=== PATIENT | female | born 1950 | race Caucasian/White ===

== ENCOUNTER 2017-01-25 18:24 | Inpatient (IN) | payer MEDICARE, OTHER ==
--- NOTE | ~2017-01-25 | DS ---
Discharge Summary [facility] [address] [place]. [address] NAME: OLIVERIO CHÁVEZ : 52 STATUS : DIS IN PAT#: [id number] AGE: 66 ADM/REG DATE : 01/25/17 MR#: [id number] REPORT SERV DATE: 02/07/17 DICTATED BY: ELENO FORBES DATE: 02/06/17 REPORT STATUS : Draft TRANSCRIBED BY: PEDRO DATE: 02/06/17 Data Collection from hospitalization DISCHARGE DIAGNOSIS: Recurrent vulva cancer. CONSULTATIONS: None. PROCEDURES PERFORMED: 1. CT scan of the chest with contrast on 01/26/2017. 2. CT-guided biopsy of right upper lobe metastatic lesion on 01/28/2017. 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 MEDICATIONS: Aspirin 81 mg at bedtime, Tessalon 200 mg three times a day, Cartia XT 180 mg at bedtime, Benadryl 25 mg at bedtime and 25 mg daily as needed, Estrace 1 mg at bedtime, Felton 5/325 one tablet at bedtime, Felton 5/325 one tablet every four hours as needed, Zestril 20 mg at bedtime, Prinzide one tablet daily, Lopressor 50 mg every 48 hours as instructed, Mycostatin one application topically three times a day as needed, Zofran 8 mg daily as needed, and Aquaphor one application topically three times a day as needed. CONDITION AT DISCHARGE: Stable. DISPOSITION: The patient was discharged home on a regular diet with activities as instructed. She would follow up with me on 02/04/2017. HOSPITAL COURSE: This is a 66-year-old female who has vulva carcinoma. She had completed radiation therapy. She had a cough and a sore throat that began Saturday evening prior to this admission after receiving a transfusion. Her cough was nonproductive. She had no fevers or chills. She said that her chest hurt from coughing so much. She was admitted to the hospital at this time for further evaluation and treatment. Upon admission, a CT scan of the chest with contrast was performed. There was a mass-like consolidation in the lingula measuring up to 23 x 46 mm with multiple new irregular nodules scattered throughout both lungs. Findings were highly concerning for metastatic disease. There was a left hilar mass, which appeared to represent conglomerate right lymphadenopathy, this measured up to 3.1 x 2.2 x 5 cm. There was trace left pleural effusion with mild pleural thickening posterior to the right lower lobe and posterior medial to the left lower lobe. Right chest Port-A-Cath device was in place. The following day, she seemed to be feeling better. She still had a cough. She had minimal improvement with Tessalon Perles. Plans were being made for a biopsy to be performed of the multiple lung lesions. On 01/28/2017, CT-guided biopsy of right upper lobe lung metastatic lesion was performed. It was felt that this was likely metastatic to the lungs from primary vulva cancer. Discharge planning was performed. On 01/29/2017, she continued to have a cough. She had mild control with the Tessalon Perles. She had no new complaints. She was going to be set up for home O2. She declined hospice care at this time. Discharge instructions were given. Due to her improved and stable condition, she was discharged home with the above-stated instructions. Discharge Summary [address] [address] NAME: OLIVERIO CHÁVEZ : 52 STATUS : DIS IN PAT#: [id number] AGE: 66 ADM/REG DATE : 01/25/17 MR#: [id number] REPORT SERV DATE: 02/07/17 DICTATED BY: ELENO FORBES DATE: 02/06/17 REPORT STATUS : Draft TRANSCRIBED BY: PEDRO DATE: 02/06/17 Information collected by: Salome Kelly I submit the above information as my discharge summary. TG/PEDRO Eleno Forbes M.D. / [id number] CC: Alicia Callahan M.D.
[~2017-01-25 18:24] MED LIST: ASAB PO; AUG875 PO; BACDS PO; BEN25 PO; BIST PO; CARTIA XT180 MG/24 PO; CEFADROXIL1 GM PO; CHEMOTHERAPY; CIP2 PO; COMP10B PO; DILT-XR180 MG PO; DIPHENHIST25 MG PO; ESTRACE1 MG PO; FLEX PO; HYDROCORTISO2.5 % PR; HYDROCORTISO2.5 % TOP; IMOD PO; LEVAQUIN750 MG PO; LOP50 PO; MAXZIDE PO; MELATONIN5 M1 PO; MOBIC15 MG PO; NEUR300 PO; NORCO1 TA1 PO; NYSTOP100000 MG TOP; OXYCOD PO; PCET PO; PENVK250 PO; PRIN20 PO; PRINZIDE1 TA1 PO; PROBIOTIC PO; SENTAB; SUPRAX PO; TESS PO; ULTRAM50 PO; ZESTORETIC PO; ZESTRIL20 MG PO; ZOFRAN4 PO; ZOFRAN8 PO; ZYVOXPO PO
[2017-01-25] MEDS ORDERED: BEN25 PO (20:31)
[2017-01-25 21:37] LABS: BASOPHILS 0.2 %; BASOPHILS ABSOLUTE 0.01 10/3/uL (0.0-0.16); EOSINOPHILS ABSOLUTE 0.05 10/3/uL (0.0-0.53); HEMATOCRIT 31.6 % (36.0-48.0); HEMOGLOBIN 10.8 g/dL (12.0-16.0); IMMATURE GRANULOCYTES 0.8 %; IMMATURE GRANULOCYTES ABSOLUTE 0.04 10/3/uL (0.0-0.11); LYMPHOCYTES 10.4 %; MEAN CORPUS HGB CONC 34.2 g/dL (32.0-36.0); MEAN PLATELET VOLUME 9.4 fL (9.2-13.0); MONOCYTES ABSOLUTE 0.63 10/3/uL (0.21-1.20); NEUTROPHILS 74.6 %; PLATELET COUNT 78 10/3/uL (150-400); RBC DISTRIBUTION WIDTH 17.4 % (12.0-16.0); RED CELL COUNT 3.48 10/6/uL (4.0-5.6); WHITE BLOOD CELLS 4.8 10/3/uL (4.5-10.5)
[2017-01-25 21:40] LABS: MANUAL DIFF NO %; MEAN CORPUSCULAR VOLUME 90.8 fL (80-100)
[2017-01-25 21:48] LABS: CALCIUM, SERUM 8.7 MG/DL (8.5-10.4); CHLORIDE, SERUM 106 MMOL/L (96-112); CREATININE 1.37 MG/DL (0.55-1.02); GFR AFRICAN AMERICAN 47 ML/MIN (>=60); GFR NON AFRICAN AMERICAN 40 ML/MIN (>=60); GLUCOSE, SERUM 91 MG/DL (60-99); POTASSIUM, SERUM 3.8 MMOL/L (3.5-5.3); SODIUM, SERUM 141 MMOL/L (135-148)
[2017-01-25 21:49] LABS: BUN (BLOOD UREA NITROGEN) 17 MG/DL (6-23); CO2 (CARBON DIOXIDE) 23 MMOL/L (24-34)
[2017-01-25 22:09] LABS: ANISOCYTOSIS 1+ (5-10/OIF) (0-5/OIF); PLATELET ESTIMATE DEC (ADEQUATE)
[2017-01-26] MEDS ORDERED: PRINZIDE1 TA1 PO (11:33)
[2017-01-26] MEDS ORDERED: ASAB PO (11:33)
[2017-01-26] MEDS ORDERED: LOP50 PO (12:09)
[2017-01-26] MEDS ORDERED: NORCO1 TA1 PO ×2 (12:10→12:11)
[2017-01-26] MEDS ORDERED: CARTIA XT180 MG/24 PO (12:11)
[2017-01-26] MEDS ORDERED: ESTRACE1 MG PO (12:11)
[2017-01-26] MEDS ORDERED: ZOFRAN8 PO (12:13)
[2017-01-26] MEDS ORDERED: ZESTRIL20 MG PO (12:15)
[2017-01-26] MEDS ORDERED: NYSTATPOW TOP (12:18)
[2017-01-26] MEDS ORDERED: PETROLATUM TOP (12:19)
[2017-01-26] MEDS ORDERED: TESS PO (12:19)
[2017-01-26] MEDS ORDERED: BEN25 PO ×2 (12:20)
[2017-01-28 03:46] LABS: HEMATOCRIT 31.5 % (36.0-48.0); HEMOGLOBIN 10.7 g/dL (12.0-16.0); MEAN CORPUSCULAR HEMOGLOB 31.3 pg (26.0-34.0); MEAN CORPUSCULAR VOLUME 92.1 fL (80-100); MEAN PLATELET VOLUME 9.2 fL (9.2-13.0); PLATELET COUNT 97 10/3/uL (150-400); RBC DISTRIBUTION WIDTH 17.1 % (12.0-16.0); RED CELL COUNT 3.42 10/6/uL (4.0-5.6)
[2017-01-28 03:53] LABS: MANUAL DIFF YES %; WHITE BLOOD CELLS 7.7 10/3/uL (4.5-10.5)
[2017-01-28 03:57] LABS: CALCIUM, SERUM 8.2 MG/DL (8.5-10.4); CHLORIDE, SERUM 113 MMOL/L (96-112); CO2 (CARBON DIOXIDE) 21 MMOL/L (24-34); CREATININE 1.18 MG/DL (0.55-1.02); GFR AFRICAN AMERICAN 56 ML/MIN (>=60); GFR NON AFRICAN AMERICAN 48 ML/MIN (>=60); GLUCOSE, SERUM 98 MG/DL (60-99); SODIUM, SERUM 144 MMOL/L (135-148)
[2017-01-28 03:58] LABS: BUN (BLOOD UREA NITROGEN) 30 MG/DL (6-23)
[2017-01-28 04:02] LABS: PROTIME (NOT ORD) 12.9 SEC (12.0-14.5)
[2017-01-28 04:03] LABS: PARTIAL THROMBO TIME 29.7 SEC (22.5-37.2)
[2017-01-28 04:15] LABS: ANISOCYTOSIS 1+ (5-10/OIF) (0-5/OIF); EOSINOPHILS 2 %; EOSINOPHILS ABSOLUTE (CALC) 0.15 10/3/uL (0.0-0.53); LYMPHOCYTES 13 %; MONOCYTES 8 %; MONOCYTES ABSOLUTE (CALC) 0.62 10/3/uL (0.21-1.20); NEUTROPHILS ABSOLUTE (CALC) 5.93 10/3/uL (2.02-8.40); PLATELET ESTIMATE DEC (ADEQUATE); RBC MORPHOLOGY ABN (NORMAL); SEGMENTED NEUTROPHIL (0) 77 %; TOTAL NUCLEATED CELLS 100
[2017-01-29 04:45] LABS: BASOPHILS 0.2 %; BASOPHILS ABSOLUTE 0.01 10/3/uL (0.0-0.16); EOSINOPHILS 0.3 %; EOSINOPHILS ABSOLUTE 0.02 10/3/uL (0.0-0.53); HEMATOCRIT 31.3 % (36.0-48.0); HEMOGLOBIN 10.6 g/dL (12.0-16.0); IMMATURE GRANULOCYTES 0.8 %; IMMATURE GRANULOCYTES ABSOLUTE 0.05 10/3/uL (0.0-0.11); LYMPHOCYTES 10.1 %; LYMPHOCYTES ABSOLUTE 0.61 10/3/uL (0.67-4.30); MANUAL DIFF NO %; MEAN CORPUS HGB CONC 33.9 g/dL (32.0-36.0); MEAN CORPUSCULAR HEMOGLOB 31.2 pg (26.0-34.0); MEAN CORPUSCULAR VOLUME 92.1 fL (80-100); MEAN PLATELET VOLUME 9.2 fL (9.2-13.0); MONOCYTES 13.1 %; MONOCYTES ABSOLUTE 0.79 10/3/uL (0.21-1.20); NEUTROPHILS 75.5 %; NEUTROPHILS ABSOLUTE 4.55 10/3/uL (2.02-8.40); PLATELET COUNT 85 10/3/uL (150-400); RBC DISTRIBUTION WIDTH 17.1 % (12.0-16.0)
[2017-01-29 05:02] LABS: BUN (BLOOD UREA NITROGEN) 23 MG/DL (6-23); CHLORIDE, SERUM 113 MMOL/L (96-112); CO2 (CARBON DIOXIDE) 22 MMOL/L (24-34); CREATININE 1.12 MG/DL (0.55-1.02); GFR AFRICAN AMERICAN 60 ML/MIN (>=60); GFR NON AFRICAN AMERICAN 52 ML/MIN (>=60); GLUCOSE, SERUM 83 MG/DL (60-99); POTASSIUM, SERUM 4.1 MMOL/L (3.5-5.3); SODIUM, SERUM 143 MMOL/L (135-148)
[2017-01-29 05:03] LABS: CALCIUM, SERUM 8.2 MG/DL (8.5-10.4)
[2017-01-29] MEDS ORDERED: TESS PO (10:17)
[2017-01-29] MEDS ORDERED: NORCO1 TA1 PO (10:18)
== END 2017-01-29 11:42 | disposition home or self-care (01) | DRG 182 ==
LOC: CDU2 18:24 → 4EA 01-26 15:55
PROVIDERS: Nurse Practitioner Family; Obstetrics & Gynecology Gynecologic Oncology
PROC: 0BBK3ZX Excision of Right Lung, Percutaneous Approach, Diagnostic (ICD-10-PCS; principal; 2017-01-25)
DX: C78.01 Secondary malignant neoplasm of right lung (principal); C51.9 Malignant neoplasm of vulva, unspecified
CPT/HCPCS: 32405; 36430; 71010; 71260; 77012; 80048; 85025; 85610; 85730; 86920; 86922; 88305; 94640; A9270-GY; J1200; J2250; P9016; Q9967

== ENCOUNTER 2017-01-31 20:04 | Inpatient (IN) | payer MEDICARE, OTHER ==
--- NOTE | ~2017-01-31 | HP ---
History And Physical [address] [place]. [address] NAME: OLIVERIO CHÁVEZ : 52 STATUS : ADM Marylin PAT#: [id number] AGE: 66 ADM/REG DATE : 01/31/17 MR#: [id number] REPORT SERV DATE: 02/01/17 DICTATED BY: KEV MARINELLI DATE: 02/01/17 REPORT STATUS : Draft TRANSCRIBED BY: MODL DATE: 02/01/17 DATE OF ADMISSION: 01/31/2017 CHIEF COMPLAINT: Cough and shortness of breath. HISTORY OF PRESENT ILLNESS: The patient is a 66-year-old female with history of vulvar cancer and recent diagnosis of metastatic disease to lungs, who earlier this week, underwent biopsy of lung by CT-guided biopsy for diagnosis. Has had progressive shortness of breath for at least over the last five to six days. Symptoms of shortness of breath have been constant, severe in severity without any chest discomfort, radiating symptoms, but not associated with nausea, vomiting, cough, weakness decreased exercise tolerance, worsened with activity, but no relieving symptoms. Symptoms are still currently present. The patient is breathing approximately anywhere from 35 to 50 times a minute, which she reports she has been doing the same episode over the last week. She was told that she may need to consider hospice care due to metastatic disease. REVIEW OF SYSTEMS: GENERAL: Noted for weakness, but no fevers. EYES: No visual change or pain. ENT: No sore throat, but does have congestion. NEURO: No headaches or confusion. SKIN: No rashes or bruising. RESPIRATORY: Positive shortness of breath and cough, dyspnea on exertion. No hemoptysis. CV: No chest pain or palpitations. GI: Positive for nausea and vomiting. : No dysuria, hematuria. MUSCULOSKELETAL: No myalgias, but does have back pain. ENDO: Increased fatigue. No polydipsia. HEME: No bleeding or bruising. IMMUNOLOGIC: No rhinorrhea. PSYCH: Does have increased anxiety. No confusion. PAST MEDICAL HISTORY: Hypertension, back pain, Legionnaires disease, syncopal episode. SURGICAL HISTORY: Hysterectomy, BSO secondary to ovarian masses, left knee replacement, hernia repair, hemivulvectomy, left groin node dissection, right groin node dissection. SOCIAL HISTORY: No tobacco, alcohol, or illicits. FAMILY HISTORY: Brother with dying mesothelioma. ALLERGIES: CODEINE, IV DYE, TAPE, AND ERYTHROMYCIN. MEDICATIONS: Aspirin, Tessalon Perles, Cardia XT, Benadryl, estradiol, Artesia, lisinopril, Prinzide, Lopressor, nystatin, Zofran, Aquaphor. History And Physical [address] [address] NAME: OLIVERIO CHÁVEZ : 52 STATUS : ADM Marylin PAT#: [id number] AGE: 66 ADM/REG DATE : 01/31/17 MR#: [id number] REPORT SERV DATE: 02/01/17 DICTATED BY: KEV MARINELLI. DATE: 02/01/17 REPORT STATUS : Draft TRANSCRIBED BY: PEDRO DATE: 02/01/17 EKG: Rate of 87, normal sinus rhythm, QTc 423. PHYSICAL EXAMINATION: VITAL SIGNS: Blood pressure 142/76, pulse 106, respirations anywhere from 35 to 50, temperature 97.6, O2 saturations 97% on room air. GENERAL: Notably anxious, in moderate discomfort. EYES: No scleral icterus. EOMI. ENT: Moist mucous membranes. RESPIRATORY: Shallow with end-expiratory wheeze. CV: Tachycardic with bilateral edema, left greater than right. GI: Soft, nontender, nondistended. : Deferred. MUSCULOSKELETAL: Moves all extremities x4. Does have an old rash on skin. The patient reports this is birthmark, looks almost cellulitic on left side. Does have mild edema, left leg greater than right. SKIN: Warm and dry with old birthmark that is erythematous on left lower extremity. LYMPH: Does have trace pedal edema. HEME: No bleeding or bruising. NEURO: Alert and oriented. Moves all extremities x4. 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 Alert and oriented x3. PSYCH: Appropriate mood. Fairly anxious. LABORATORY DATA: WBC 9.7, H and H 11.8 and 33.1, platelets 135. INR 1.1. BNP 215.7. Sodium 142, potassium 3.2, BUN and creatinine 12 and 1.06, magnesium 1.5, lipase 61. Troponin negative. ASSESSMENT AND PLAN: 1. Dyspnea. 2. Vulvar cancer with mets to lung. 3. Hypokalemia. 4. Hypomagnesemia. 5. Bicytopenia. 6. Systemic inflammatory response syndrome. PLAN: 1. For dyspnea, symptoms have been occurring for over a week. The patient has had imaging with CT and biopsy for new lung mets, but has not appeared to have PE protocol as well as currently criteria approximately 5.5 with moderate risk group of 16-point chance due to risk factors. We will additionally order CT PE protocol. As creatinine has been evaluated, we will gently hydrate as tolerated. Start on therapeutic treatment and rule out if able. Unclear reports, note IV contrast allergy. We will have to evaluate if this is true. The patient does have mild leg edema over the right. Additionally, has history of Legionnaire's disease. We will check for Legionella infection. Steroids given in emergency room. DuoNebs. Symptoms may ultimately be secondary to new lung malignancy. 2. Vulvar cancer with likely mets to lungs. Biopsy pending. The patient reports that she was told to consider hospice. We will notify Dr. Krishna, as the patient was just History And Physical [address] [address] NAME: OLIVERIO CHÁVEZ : 52 STATUS : ADM Marylin PAT#: [id number] AGE: 66 ADM/REG DATE : 01/31/17 MR#: [id number] REPORT SERV DATE: 02/01/17 DICTATED BY: KEV MARINELLI. DATE: 02/01/17 REPORT STATUS : Draft TRANSCRIBED BY: MODL DATE: 02/01/17 recently discharged. Additionally, Palliative consult for symptom. 3. Hypokalemia. Replace. 4. Hypomagnesemia. IV replacement. 5. Bicytopenia. Slightly improved. 6. SIRS. Check Legionella secondary to dyspnea. Rule out PE. 7. Code status discussed with the patient. The patient is DNR/DNI. All questions answered with the patient and family at bedside. DDN/MODL Kev Marinelli MD / [id number] CC: Hilario Mon Jr, MD
--- NOTE | ~2017-01-31 | DS ---
Discharge Summary [facility] [address] [place]. [address] NAME: OLIVERIO CHÁVEZ : 52 STATUS : DIS IN PAT#: [id number] AGE: 66 ADM/REG DATE : 02/01/17 MR#: [id number] REPORT SERV DATE: 02/06/17 DICTATED BY: TL QUINTERO DATE: 02/02/17 REPORT STATUS : Draft TRANSCRIBED BY: MODL DATE: 02/02/17 ADMISSION DATE: 02/01/2017 DISCHARGE DATE: 02/02/2017 CHIEF COMPLAINT ON ADMISSION: Cough and shortness of breath. DISCHARGE DIAGNOSES: 1. Metastatic vulvar cancer. 2. Dyspnea. 3. Known metastatic lesions of lung. HISTORY OF PRESENT ILLNESS: Please see full H and P for details regarding initial presentation by Dr. Wallis. HOSPITAL COURSE: The patient was admitted to the hospital for symptomatic management, was seen by Palliative Care. She was treated with IV steroids as well as respiratory care. Her dyspnea improved minimally. At this point, she wishes to go home, wishes to be to be home for the . Hospice has been consulted and the plan is to discharge today with hospice for ongoing care. Time spent on this discharge is less than 30 minutes. Discharge medication reconciliation per hospice. DNK/MODL Tl Quintero MD / [id number] CC: MD Cris See M.D.
[~2017-01-31 20:04] MED LIST changes: +NYSTATPOW TOP; +PETROLATUM TOP
[2017-01-31 21:52] LABS: BASOPHILS 0.1 %; BASOPHILS ABSOLUTE 0.01 10/3/uL (0.0-0.16); HEMATOCRIT 33.1 % (36.0-48.0); HEMOGLOBIN 11.8 g/dL (12.0-16.0); IMMATURE GRANULOCYTES 1.9 %; IMMATURE GRANULOCYTES ABSOLUTE 0.18 10/3/uL (0.0-0.11); LYMPHOCYTES 7.9 %; LYMPHOCYTES ABSOLUTE 0.77 10/3/uL (0.67-4.30); MEAN CORPUSCULAR HEMOGLOB 31.6 pg (26.0-34.0); MEAN PLATELET VOLUME 9.5 fL (9.2-13.0); MONOCYTES 7.9 %; MONOCYTES ABSOLUTE 0.77 10/3/uL (0.21-1.20); NEUTROPHILS 81.2 %; NEUTROPHILS ABSOLUTE 7.89 10/3/uL (2.02-8.40); RBC DISTRIBUTION WIDTH 16.3 % (12.0-16.0); RED CELL COUNT 3.74 10/6/uL (4.0-5.6)
[2017-01-31 21:58] LABS: INTERNATIONAL NORMAL RATI 1.1 UNITS (-); PARTIAL THROMBO TIME 33.5 SEC (22.5-37.2); PROTIME (NOT ORD) 14.1 SEC (12.0-14.5)
[2017-01-31 22:01] LABS: MANUAL DIFF NO %; MEAN CORPUS HGB CONC 35.6 g/dL (32.0-36.0); MEAN CORPUSCULAR VOLUME 88.5 fL (80-100); PLATELET COUNT 135 10/3/uL (150-400); WHITE BLOOD CELLS 9.7 10/3/uL (4.5-10.5)
[2017-01-31 22:09] LABS: ALBUMIN 3.1 G/DL (3.5-5.0); ALKALINE PHOSPHATASE 82 U/L (45-117); CALCIUM, SERUM 8.6 MG/DL (8.5-10.4); CHEST PAIN PROFILE TAT 0 Hrs 25 Mins; CHLORIDE, SERUM 107 MMOL/L (96-112); CO2 (CARBON DIOXIDE) 24 MMOL/L (24-34); CREATININE 1.06 MG/DL (0.55-1.02); DIRECT BILIRUBIN 0.2 MG/DL (0.0-0.4); GFR AFRICAN AMERICAN 64 ML/MIN (>=60); GFR NON AFRICAN AMERICAN 55 ML/MIN (>=60); GLUCOSE, SERUM 97 MG/DL (60-99); INDIRECT BILIRUBIN(NOT ORDER) 0.5 MG/DL (0.1-0.9); SGOT(AST) 18 U/L (5-40); SGPT(ALT) 18 U/L (5-65); SODIUM, SERUM 142 MMOL/L (135-148); TOTAL BILIRUBIN 0.7 MG/DL (0-1.2); TROPONIN I <0.02 NG/ML (<0.05)
[2017-01-31 22:10] LABS: BUN (BLOOD UREA NITROGEN) 12 MG/DL (6-23); POTASSIUM, SERUM 3.2 MMOL/L (3.5-5.3)
[2017-01-31 22:19] LABS: BAND NEUTROPHILS 4 %; BASOPHILS 1 %; EOSINOPHILS 3 %; EOSINOPHILS ABSOLUTE (CALC) 0.29 10/3/uL (0.0-0.53); ER DIFF TAT 0 Hrs 35 Mins; LYMPHOCYTES 6 %; LYMPHOCYTES ABSOLUTE (CALC) 0.58 10/3/uL (0.67-4.30); MONOCYTES 5 %; MONOCYTES ABSOLUTE (CALC) 0.49 10/3/uL (0.21-1.20); NEUTROPHILS ABSOLUTE (CALC) 8.25 10/3/uL (2.02-8.40); PLATELET ESTIMATE SLT DEC (ADEQUATE); SEGMENTED NEUTROPHIL (0) 81 %; TOTAL NUCLEATED CELLS 100
[2017-01-31 22:22] LABS: TEARDROP SHAPED RBCS OCC (0-2/OIF)
[2017-01-31 22:23] LABS: MACROCYTES 1+ (5-10/OIF) (0-5/OIF)
[2017-01-31] MEDS ORDERED: PRINZIDE1 TA1 PO (23:58)
[2017-02-01] MEDS ORDERED: NORCO1 TA1 PO
[2017-02-01] MEDS ORDERED: PRIN20 PO (00:01)
[2017-02-01] MEDS ORDERED: CARTIA XT180 MG/24 PO (00:01)
[2017-02-01] MEDS ORDERED: ASAB PO (00:02)
[2017-02-01] MEDS ORDERED: AQUAPHOR OINTMENT TOP (00:02)
[2017-02-01] MEDS ORDERED: BEN25 PO (00:03)
[2017-02-01] MEDS ORDERED: ESTRACE1 MG PO (00:03)
[2017-02-01] MEDS ORDERED: LOP50 PO (00:09)
[2017-02-01] MEDS ORDERED: NYSTATPOW TOP (00:09)
[2017-02-01] MEDS ORDERED: ZOFRAN8 PO (00:10)
[2017-02-01] MEDS ORDERED: TESSALON200 MG PO (00:10)
[2017-02-01 06:31] LABS: TROPONIN I 0.02 NG/ML (<0.05)
[2017-02-01 07:38] LABS: PROCALCITONIN 0.05 ng/mL (<0.5)
[2017-02-01 14:53] LABS: TROPONIN I <0.02 NG/ML (<0.05)
[2017-02-01 15:03] LABS: BUN (BLOOD UREA NITROGEN) 13 MG/DL (6-23); CALCIUM, SERUM 8.2 MG/DL (8.5-10.4); CHLORIDE, SERUM 103 MMOL/L (96-112); CO2 (CARBON DIOXIDE) 21 MMOL/L (24-34); CREATININE 1.17 MG/DL (0.55-1.02); GFR AFRICAN AMERICAN 57 ML/MIN (>=60); GFR NON AFRICAN AMERICAN 49 ML/MIN (>=60); POTASSIUM, SERUM 3.6 MMOL/L (3.5-5.3); SODIUM, SERUM 138 MMOL/L (135-148)
[2017-02-01 15:06] LABS: GLUCOSE, SERUM 267 MG/DL (60-99)
[2017-02-02] MEDS ORDERED: HCTZ12.5 (16:39)
[2017-02-02] MEDS ORDERED: SENTAB PO (16:41)
[2017-02-02] MEDS ORDERED: ATV1 PO (16:42)
[2017-02-02] MEDS ORDERED: ALBUTEROL5 INH (16:44)
[2017-02-02] MEDS ORDERED: KADIAN10 MG PO (16:45)
[2017-02-02] MEDS ORDERED: AVINZA30 PO (16:46)
[2017-02-02] MEDS ORDERED: MSIMMR15 PO (16:47)
[2017-02-02] MEDS ORDERED: P20 PO (16:51)
[2017-02-02] MEDS ORDERED: ZOFRAN4 PO (16:56)
== END 2017-02-02 20:03 | disposition hospice, home (50) | DRG 204 ==
LOC: ER 20:04 → CDU1 23:59
PROVIDERS: Emergency Medicine; Internal Medicine
DX: R06.00 Dyspnea, unspecified (principal); Z51.5 Encounter for palliative care; C78.00 Secondary malignant neoplasm of unspecified lung; R65.10 Systemic inflammatory response syndrome (SIRS) of non-infectious origin without acute organ dysfunction; E87.6 Hypokalemia; C51.9 Malignant neoplasm of vulva, unspecified; I10 Essential (primary) hypertension; E83.42 Hypomagnesemia; Z66 Do not resuscitate
CPT/HCPCS: 71010; 71275; 80048; 80076; 83690; 83735; 83880; 84145; 84484; 85025; 85610; 85730; 93005; 94640; 96374; 99285; A9270-GY; J2920; J2930; Q9967

== ENCOUNTER 2017-02-02 20:18 | Inpatient (IN) | payer OTHER ==
--- NOTE | ~2017-02-02 | DS ---
Discharge Summary [facility] [address] [facility] [place]. [address] NAME: MOIRA CHÁVEZ : 52 STATUS : DIS IN PAT#: [id number] AGE: 66 ADM/REG DATE : 02/02/17 MR#: [id number] REPORT SERV DATE: 02/19/17 DICTATED BY: VIOLETA ENRIQUEZ DATE: 02/15/17 REPORT STATUS : Draft TRANSCRIBED BY: MODL DATE: 02/15/17 ADMISSION DATE: 02/02/2017 DISCHARGE DATE: 02/03/2017 Moira Chávez came to [facility] in January 2017, with a known history of vulvar cancer. She was diagnosed with metastatic disease involving the lung and elected to go home for comfort care under the care of hospice at [facility]. She was discharged home with her family on 02/02/2017, to continue with hospice services in the home setting. Her discharge medications included, please see the discharge summary for that. She takes hydrocodone p.r.n. pain, senna for constipation, metoprolol for blood pressure problems as well as lisinopril, and DICTATION ENDS HERE GEORGETTE/PEDRO Violeta Enriquez M.D. / [id number] CC: MD Cris Rose M.D.
[~2017-02-02 20:18] MED LIST changes: +ALBUTEROL5 INH; +AQUAPHOR OINTMENT TOP; +ATV1 PO; +AVINZA30 PO; +HCTZ12.5; +KADIAN10 MG PO; +MSIMMR15 PO; +P20 PO; +SENTAB PO; +TESSALON200 MG PO
== END 2017-02-03 14:50 | disposition hospice, home (50) | DRG 181 ==
LOC: CDU1 20:18
DX: C78.00 Secondary malignant neoplasm of unspecified lung (principal); R65.10 Systemic inflammatory response syndrome (SIRS) of non-infectious origin without acute organ dysfunction; I10 Essential (primary) hypertension; Z51.5 Encounter for palliative care; E83.42 Hypomagnesemia; Z66 Do not resuscitate; E87.6 Hypokalemia; Z85.89 Personal history of malignant neoplasm of other organs and systems; Z96.652 Presence of left artificial knee joint; Z90.722 Acquired absence of ovaries, bilateral; Z88.5 Allergy status to narcotic agent; Z88.1 Allergy status to other antibiotic agents; Z91.041 Radiographic dye allergy status
CPT/HCPCS: 94640; A9270-GY; J2920